=== PATIENT | female | born 1950 | race American Indian/Alaskan Native ===

== ENCOUNTER 2019-09-27 15:28 | Emergency (ER) | payer OTHER, SELFPAY ==
[2019-09-27 15:30] VITALS: BP 130/60; PULSE 72; RESP 14; TEMP 36.4; O2SAT 97; BMI 29.2
--- NOTE | 2019-09-27 15:51 | ED.NEUROSD ---
HPI - Neuro Symptoms/Deficit General Chief Complaint: Neuro Symptoms/Deficit Stated Complaint: Episode of tingling in face, dizziness Time Seen by Provider: 09/27/19 15:50 Source: patient Mode of arrival: Ambulatory Limitations: no limitations History of Present Illness HPI Narrative: 68-year-old woman with a history of radioactive thyroid ablation and chronic thyroid supplementation who had a episode this afternoon shortly after standing up abruptly where she experienced perioral tingling and a fleeting instance of dizziness. All symptoms resolved within seconds. She had no additional associated neurologic complaints. She does note that she has been having hot and cold flashes for a number of months but no fevers. She has no other complaints or concerns. When she contacted her primary care physician they recommended that she come to the emergency room for further evaluation. Related Data Home Medications Medication Instructions Recorded Confirmed fluticasone propionate #0 04/03/17 levothyroxine [Synthroid] #0 04/03/17 psyllium husk (aspartame) #0 04/03/17 [Metamucil Fiber Singles] Allergies Allergy/AdvReac Type Severity Reaction Status Date / Time No Known Drug Allergies Allergy Verified 09/27/19 15:39 Review of Systems Review of Systems Narrative: Pertinent positive and negative findings as per HPI Remainder of review of systems is otherwise unremarkable for Constitutional: Fevers, chills, weakness ENT: No sore throat, neck pain, ear pain CV: Chest pain, palpitations, dyspnea on exertion Respiratory: Cough, wheeze, dyspnea GI: Nausea, vomiting, diarrhea, change in bowel habits, black or bloody stools : Dysuria, hematuria, flank pain MS: Muscle weakness, numbness, joint swelling or warmth Skin: Rashes, nonhealing lesions Neuro: Syncope, dizziness, tingling Psych: Depression, anxiety, suicidal ideation Endocrine: Fatigue, heat or cold intolerance, very dry skin Heme: Easy bruising or bleeding Allergy: Seasonal rhinorrhea, itchy eyes Patient History Medical History (Updated 09/27/19 @ 16:15 by Brooklyn Moe MD) H/O radioactive iodine thyroid ablation (Acute) Hypothyroidism (acquired) (Acute) Surgical History (Updated 09/27/19 @ 16:15 by Brooklyn Moe MD) H/O hysterectomy for benign disease (Acute) Social History Smoking Status: Unknown if ever smoked Smoking Status: Unknown if ever smoked alcohol intake frequency: holidays/special occasions only Substance Use Type: does not use Exam Narrative Exam Narrative: General: Healthy appearing, in no acute distress. Able to give a complete and coherent history. Well-nourished well-developed HEENT: Moist mucous membranes, normal sclera with reactive pupils, Neck: No JVD, supple Respiratory: Lungs are clear to auscultation, no wheezing no rales no rhonchi. Full and symmetrical air movement Cardiac: Regular rate and rhythm no murmurs no bruits Abdomen: Soft nontender good bowel tones, no flank pain Skin: Warm and dry, no rashes Neurologic: Grossly neurologically intact with no obvious asymmetries or abnormalities. No gait unsteadiness, negative Babinski, symmetrical reflexes bilaterally 2+ Extremities: No trauma, well perfused Psych: Cooperative, appropriate insight and affect Initial Vital Signs Initial Vital Signs: Vital Signs Temperature 97.6 F 09/27/19 15:30 Pulse Rate 72 09/27/19 15:30 Respiratory Rate 14 09/27/19 15:30 Blood Pressure 130/60 09/27/19 15:30 Pulse Oximetry 97 09/27/19 15:30 Course Vital Signs Vital signs: Vital Signs - 8 hr 09/27/19 15:30 Temperature 97.6 F Pulse Rate 72 Respiratory Rate 14 Blood Pressure 130/60 Pulse Oximetry 97 Discharge Plan Departure Patient Disposition: Home Clinical Impression: Transient alteration of awareness Instructions: DI for Dizziness-Nonvertigo Activity Restrictions/Additional Instructions: Thank you for coming in today And very reassured with your description of events as well as your physical exam today. I do not have a full explanation for why you had that momentary episode of tingling around your lips and a sense that you were dizzy but I am reassured that it lasted less than a minute and that you are having no further symptoms. If you find your having more episodes like this, any symptoms that persist, fevers, chills, cough or feeling short of breath would be very appropriate to return to the emergency room for further evaluation I wish you the very best Prescriptions: No Action levothyroxine [Synthroid] 75 MCG tablet Qty: 0 RF: 0 fluticasone propionate 16 GM spray,suspension Qty: 0 RF: 0 psyllium husk (aspartame) [Metamucil Fiber Singles] 3.4 GM powder in packet Qty: 0 RF: 0 Referrals: Deborah Arce PA-C [Primary Care Provider] -
== END 2019-09-27 16:24 | disposition home or self-care (01) ==
PROVIDERS: Emergency Provider Emergency Medicine; Family Provider Physician Assistant; PCP Physician Assistant
DX: R40.4 Transient alteration of awareness (principal); R42 Dizziness and giddiness; R20.2 Paresthesia of skin
CPT/HCPCS: 99281

== ENCOUNTER → 2020-08-14 17:54 | Outpatient (CLI) | payer OTHER, SELFPAY ==
--- NOTE | 2020-08-14 | DI.RAD.S_ITS ---
PROCEDURE: XR CERVICAL SPINE 2V OR 3V INDICATIONS: Neck Pain TECHNIQUE: 3 view(s) of the cervical spine were acquired. COMPARISON: None. FINDINGS: Bones: No fractures or dislocations to the C7-T1 level. Decreased intervertebral disc space, degenerative endplate changes and bilateral uncinate hypertrophic changes are noted throughout cervical spine. The lateral masses of C1 appear intact on the odontoid view. No suspicious bony lesions. Soft tissues: No prevertebral soft tissue swelling. IMPRESSION: Degenerative disc disease throughout cervical spine. No acute fracture or dislocation. Dictated by: Freddy Mayer M.D. on 08/15/2020 at 13:18 Approved by: Freddy Mayer M.D. on 08/15/2020 at 13:20
== END ==
PROVIDERS: Family Provider Physician Assistant; PCP Physician Assistant; Referring Provider Family Medicine; Visit Provider Family Medicine
DX: M50.30 Other cervical disc degeneration, unspecified cervical region (principal)
CPT/HCPCS: 72040

== ENCOUNTER 2020-10-26 16:25 | Emergency (ER) | payer OTHER, SELFPAY ==
[2020-10-26 16:34] VITALS: PULSE 99; RESP 16; TEMP 36.1; O2SAT 100; BMI 22.3
--- NOTE | 2020-10-26 16:38 | DI.RAD.S_ITS ---
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 COMPARISON: [facility], , FINGER LT, 11/20/2012, 9:55. FINDINGS: Bones: No acute fracture identified. 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 1st MCP joint degeneration is present. Postsurgical changes and osseous fusion of the PIP joint of the index finger. Distal radioulnar joint osteoarthritis. Soft tissues: Little finger soft tissue swelling. IMPRESSION: No fracture. If the patient's symptoms do not improve recommend followup radiographs in 10 days to assess for healing sclerosis/occult injury. Soft tissue swelling of little finger. Dictated by: Ajay Long M.D. on 10/26/2020 at 17:03 Approved by: Ajay Long M.D. on 10/26/2020 at 17:06
[2020-10-26] MEDS: TET,DIPH,PERTUSS(ACELL),VAC/PF 0.5 ML SYRINGE IM (18:23)
[2020-10-26] MEDS: LIDO 1%/SOD BICARB 8.4% (10ML) 10 ML SYRINGE INJ (18:25)
--- NOTE | 2020-10-26 18:25 | PC.NURSE ---
Lidocaine administered by provider.
[2020-10-26 18:56] VITALS: BP 128/59; PULSE 64; RESP 16; O2SAT 98
--- NOTE | 2020-10-26 19:16 | ED.WOUNDLAC ---
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 She states she wrapped a lot of Band-Aids around it so it would stop bleeding. Does not know when her last tetanus is. States she has a full range of motion of her left 5th digit. Related Data Home Medications Medication Instructions Recorded Confirmed fluticasone propionate #0 04/03/17 levothyroxine [Synthroid] #0 04/03/17 psyllium husk (aspartame) #0 04/03/17 [Metamucil Fiber Singles] Allergies Allergy/AdvReac Type Severity Reaction Status Date / Time No Known Drug Allergies Allergy Verified 10/26/20 16:37 Review of Systems <JOHN Ferguson - Last Filed: 10/26/20 19:32> Review of Systems Narrative: GENERAL: Denies chills, fatigue, malaise, fever, sweats. HEENT: Denies sinus pain, ear pain, sore throat, difficulty swallowing, dizziness. RESPIRATORY: Denies dyspnea, cough, wheezing, hemoptysis, sputum. CARDIOVASCULAR: Denies chest pain, palpitations, orthopnea, edema, GASTROINTESTINAL: Denies nausea, vomiting, abdominal pain, diarrhea, constipation, melena. : Denies dysuria, frequency, incontinence, hematuria, urinary retention. MUSCULOSKELETAL: See HPI SKIN: See HPI NEUROLOGIC: Denies weakness, headache, numbness, change in speech, confusion, seizures, incoordination. PSYCHIATRIC: No concerning psychosocial issues. 12 point review of systems is negative except for those stated above Patient History <JOHN Ferguson - Last Filed: 10/26/20 19:32> Medical History (Updated 10/26/20 @ 19:09 by JOHN Ferguson) H/O radioactive iodine thyroid ablation Hypothyroidism (acquired) Surgical History (Updated 09/27/19 @ 16:15 by Brooklyn Moe MD) H/O hysterectomy for benign disease Social History Smoking Status: Unknown if ever smoked Smoking Status: Unknown if ever smoked alcohol intake frequency: holidays/special occasions only Substance Use Type: does not use Exam <JOHN Ferguson - Last Filed: 10/26/20 19:32> Narrative Exam Narrative: GENERAL: This is a well-nourished, well-developed patient, in no acute distress HEAD: Atraumatic. Normocephalic. No temporal or scalp tenderness. EYES: Pupils equal round and reactive. Extraocular motions intact. No scleral icterus. No injection or drainage. ENT: Nose without bleeding, purulent drainage or septal hematoma. Wearing a mask Airway patent. CARDIOVASCULAR: Regular rate and rhythm RESPIRATORY: No cough. No increased respiratory effort. No accessory muscle use. EXTREMITIES: 2 cm laceration along lateral aspect of distal and middle phalanx of left 5th digit. Laceration is well approximated, is a blood. Patient is able to fully flex and extend left 5th digit. Capillary refill less than 2 seconds left 5th digit. Positive left radial pulse BACK: Nontender without deformity or crepitance. No flank tenderness. NEURO: AOx3. SKIN: See extremity exam Initial Vital Signs Initial Vital Signs: Vital Signs Temperature 97 F L 10/26/20 16:34 Pulse Rate 99 H 10/26/20 16:34 Respiratory Rate 16 10/26/20 16:34 Pulse Oximetry 100 10/26/20 16:34 <Adonay Duran DO - Last Filed: 10/26/20 23:39> Initial Vital Signs Initial Vital Signs: Vital Signs Temperature 97 F L 10/26/20 16:34 Pulse Rate 99 H 10/26/20 16:34 Respiratory Rate 16 10/26/20 16:34 Pulse Oximetry 100 10/26/20 16:34 Procedures <JOHN Ferguson - Last Filed: 10/26/20 19:32> Laceration Repair Laceration 1: Site: hand Side (If applicable): left Size (cm): 2 Description: linear Depth: simple, single layer Pre-repair: wound explored and irrigated extensively Skin layer closed with: nylon Size (cm): 5-0 Number of sutures: 5 Technique: simple, interrupted Nerve Block Nerve Block 1: Local Anesthetic: lidocaine 1% and with bicarb Amount of anesthesia used (mL): 4 Side: left Nerve Blocks: digital Procedure Successful: Yes Patient Tolerated Procedure: Well Complications: none Scores <JOHN Ferguson - Last Filed: 10/26/20 19:32> GCS Mc coma scale eye opening: Spontaneous [place] coma scale verbal response: Orientated Mc coma scale motor response: Obey commands [place] coma scale total score: 15 Course <JOHN Ferguson - Last Filed: 10/26/20 19:32> Orders Ordered: ED Orders 10/26/20 16:38 XR finger LT min 2V Stat Discontinued Medications Diphtheria/Tetanus/Acell Pertussis (Tet,Diph,Pertuss(Acell),Vac/Pf 0.5 Ml Syringe) 0.5 ml IM .ONCE ONE Stop: 10/26/20 18:12 Last Admin: 10/26/20 18:23 Dose: 0.5 ml Documented by: VANNA Lidocaine/Sodium Bicarbonate (Lido 1%/Sod Bicarb 8.4% (10ml) 10 Ml Syringe) 10 ml INJ NOW ONE Stop: 10/26/20 18:12 Last Admin: 10/26/20 18:25 Dose: 10 ml Documented by: VANNA Vital Signs Vital signs: Vital Signs - 8 hr 10/26/20 16:34 10/26/20 18:56 Temperature 97 F L Pulse Rate 99 H 64 Respiratory Rate 16 16 Blood Pressure 128/59 L Pulse Oximetry 100 98 <Adonay Duran DO - Last Filed: 10/26/20 23:39> Orders Ordered: ED Orders 10/26/20 16:38 XR finger LT min 2V Stat Discontinued Medications Diphtheria/Tetanus/Acell Pertussis (Tet,Diph,Pertuss(Acell),Vac/Pf 0.5 Ml Syringe) 0.5 ml IM .ONCE ONE Stop: 10/26/20 18:12 Last Admin: 10/26/20 18:23 Dose: 0.5 ml Documented by: VANNA Lidocaine/Sodium Bicarbonate (Lido 1%/Sod Bicarb 8.4% (10ml) 10 Ml Syringe) 10 ml INJ NOW ONE Stop: 10/26/20 18:12 Last Admin: 10/26/20 18:25 Dose: 10 ml Documented by: VANNA Vital Signs Vital signs: Vital Signs - 8 hr 10/26/20 16:34 10/26/20 18:56 Temperature 97 F L Pulse Rate 99 H 64 Respiratory Rate 16 16 Blood Pressure 128/59 L Pulse Oximetry 100 98 [facility] - Wound/Laceration <Irina AddisonVALENTÍN- - Last Filed: 10/26/20 19:32> Imaging Data Extremity x-ray #1: Radiologist's Impression: [address] [id number] ReportSigned Patient: Sarah Villanueva FMR#: [id number]: 2Acct:[id number]/Sex: 70 / FDate of Service: 10/26/20Loc: EDAccession Number: [id number] Procedure: XR finger LT min 2V Ordering Provider: Yael Ro D.O. 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 COMPARISON: [facility], , FINGER LT, 11/20/2012, 9:55. FINDINGS: Bones: No acute fracture identified. 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 1st MCP joint degeneration is present. Postsurgical changes and osseous fusion of the PIP joint of the index finger. Distal radioulnar joint osteoarthritis. Soft tissues: Little finger soft tissue swelling. IMPRESSION: No fracture. If the patient's symptoms do not improve recommend followup radiographs in 10 days to assess for healing sclerosis/occult injury. Soft tissue swelling of little finger. Dictated by: Ajay Long M.D. on 10/26/2020 at 17:03 Approved by: Ajay Long M.D. on 10/26/2020 at 17:06 [facility] Narrative Medical decision making narrative: The patient is a 70-year-old female who presents with a chief complaint of laceration this morning sustained to her left 5th digit. Last tetanus status unknown, so she received in the emergency department. X-ray is no acute findings. She received a digital block and laceration repair as per procedural note which she tolerated well. I discussed at length keeping her hand clean and dry, follow-up with [employer] [facility] [employer] and monitoring for signs and symptoms of infection as well as suture removal in 1 week. Patient has no questions or concerns upon discharge and states understanding return precautions as well as follow-up care. Discharge Plan Departure Patient Disposition: Home Clinical Impression: Laceration Instructions: How to Care for a Laceration After Repair, DI for Laceration Repair, DI for Minor Laceration Activity Restrictions/Additional Instructions: Thank you for trusting us with your care today. I placed 5 sutures in your finger. Please follow-up with primary care provider regarding this as well as [employer]. Please keep your hand clean and dry. Do not submerge into dirty water to as this can increase her chance of infection. Please monitor for signs of infection such as extending redness or purulent drainage. Please come back to the emergency department. As I discussed, your x-ray shows no acute fracture. This does not rule out a soft tissue injury such as a ligament or tendon injury. It is important that you follow up with primary care provider, especially if worsening or no improvement. There can be fractures that did not show up on initial x-ray. Prescriptions: No Action levothyroxine [Synthroid] 75 MCG tablet Qty: 0 RF: 0 fluticasone propionate 16 GM spray,suspension Qty: 0 RF: 0 psyllium husk (aspartame) [Metamucil Fiber Singles] 3.4 GM powder in packet Qty: 0 RF: 0 Referrals: Deborah Arce PA-C [Primary Care Provider] - Stand Alone Forms: Work Release Note <Adonay Duran DO - Last Filed: 10/26/20 23:39> Cosign ED Attending Cosalonsoature Attestation: I was immediately available in the department for consultation. This documentation has been reviewed and I agree with assessment and plan. Supervised by Adonay Duran DO
== END 2020-10-26 19:15 | disposition home or self-care (01) ==
PROVIDERS: Emergency Provider Nurse Practitioner Family; Family Provider Physician Assistant; PCP Physician Assistant
DX: S61.211A Laceration without foreign body of left index finger without damage to nail, initial encounter (principal); W26.8XXA Contact with other sharp object(s), not elsewhere classified, initial encounter; Z23 Encounter for immunization
CPT/HCPCS: 12001; 64450; 73140; 90471; 99283; 99284; 90715

== ENCOUNTER → 2020-12-17 16:15 | Outpatient (CLI) | payer OTHER, SELFPAY ==
--- NOTE | 2020-12-17 16:20 | DI.RAD.S_ITS ---
PROCEDURE: XR LUMBAR SPINE 2-3V INDICATIONS: BACK PAIN TECHNIQUE: 3 views of the lumbar spine were acquired. COMPARISON: [facility], , L-SPINE 2-3 VIEWS, 10/04/2013, 14:32. FINDINGS: Bones: 5 [id number] vertebrae are present. There is mild levoscoliosis centered at L2 level. Degenerative endplate changes and decreased intervertebral disc space throughout lumbar spine is seen.. No vertebral body compression fractures. No suspicious bony lesions. Soft tissues: Overlying bowel gas pattern is normal. No suspicious soft tissue calcifications. IMPRESSION: Degenerative disc disease throughout lumbar spine and mild scoliosis as above. No acute compression fracture or spondylolisthesis. Dictated by: Freddy Mayer M.D. on 12/17/2020 at 17:23 Approved by: Freddy Mayer M.D. on 12/17/2020 at 17:24
== END ==
PROVIDERS: Family Provider Physician Assistant; PCP Physician Assistant; Referring Provider Family Medicine; Visit Provider Family Medicine
DX: M48.062 Spinal stenosis, lumbar region with neurogenic claudication (principal); M51.36 Other intervertebral disc degeneration, lumbar region; M41.86 Other forms of scoliosis, lumbar region
CPT/HCPCS: 72100

== ENCOUNTER → 2020-12-29 08:19 | Outpatient (CLI) | payer OTHER, SELFPAY ==
--- NOTE | 2020-12-29 | DI.MRI.S_ITS ---
PROCEDURE: MR LUMBAR SPINE WO CON INDICATIONS: LUMBAR STENOSIS TECHNIQUE: Noncontrast sagittal T1 spin echo and T2 fast echo, coronal T2, sagittal STIR, axial T1 and T2 fast spin echo through the lumbar spine. COMPARISON: [facility], CR, XR LUMBAR SPINE 2-3V, 12/17/2020, 16:15. [facility], MR, L-SPINE WITHOUT CONTRAST, 03/31/2014, 19:06. FINDINGS: Image quality: Excellent. Alignment and Curvature: 5 lumbar type vertebral bodies are present by plain film. Moderate leftward curvature of the mid/upper lumbar spine. Loss of normal lumbar lordosis. Mild grade 1 retrolisthesis of L1 on L2, L2 on L3, and L3 on L4. Bone Marrow: Marrow is of normal overall signal. No acute vertebral body compression fractures. There is mild reactive signal within the endplates adjacent to the L1-L2, L2-L3, L4-L5, and L5-S1 intervertebral discs. Spinal Cord: Conus medullaris terminates at the upper L2 level. Visualized cord demonstrates normal signal and size. Paraspinous Soft Tissues: No paravertebral masses. T12-L1: Mild disc desiccation and diffuse disc bulge. No significant canal, or foraminal stenosis. No significant change. L1-L2: Mild disc height loss and desiccation. Mild diffuse disc bulge. Mild facet and ligamentum flavum hypertrophy. Mild canal stenosis. No foraminal stenosis. No significant change. L2-L3: Moderate disc height loss and desiccation. Mild diffuse disc bulge. Mild facet and ligamentum flavum hypertrophy. Mild epidural lipomatosis. Mild canal stenosis. Mild bilateral foraminal stenosis. No significant change. L3-L4: Moderate disc height loss and desiccation. Mild diffuse disc bulge. Mild facet and ligamentum flavum hypertrophy. Mild epidural lipomatosis. Mild canal stenosis. Mild bilateral foraminal stenosis. No significant change. L4-L5: Mild disc height loss and desiccation. Mild diffuse disc bulge. Mild facet and ligamentum flavum hypertrophy. Mild epidural lipomatosis. Mild canal stenosis. Moderate left foraminal stenosis, increased from the prior examination. No change in mild right foraminal stenosis. L5-S1: Moderate disc height loss and desiccation. Mild diffuse disc bulge. Mild bilateral facet hypertrophy. Mild canal stenosis. Mild bilateral foraminal stenosis. No significant change. IMPRESSION: 1. Multilevel degenerative disc and facet disease, as well as ligamentum flavum hypertrophy and epidural lipomatosis. 2. Mild multilevel canal stenoses. 3. Multilevel foraminal stenoses, worst at L4-L5 on the left where there is moderate foraminal stenosis. Dictated by: Vijay Francisco M.D. on 12/31/2020 at 8:38 Approved by: Vijay Francisco M.D. on 12/31/2020 at 8:44
== END ==
PROVIDERS: Family Provider Physician Assistant; PCP Physician Assistant; Referring Provider Family Medicine; Visit Provider Family Medicine
DX: M48.061 Spinal stenosis, lumbar region without neurogenic claudication (principal); M48.07 Spinal stenosis, lumbosacral region; M51.36 Other intervertebral disc degeneration, lumbar region; M51.37 Other intervertebral disc degeneration, lumbosacral region; E88.2 Lipomatosis, not elsewhere classified
CPT/HCPCS: 72148

== ENCOUNTER → 2022-01-07 15:05 | Outpatient (CLI) | payer OTHER, SELFPAY ==
--- NOTE | 2022-01-07 | DI.RAD.S_ITS ---
PROCEDURE: XR HAND LT MIN 3V INDICATIONS: pain in left hand TECHNIQUE: 3 views of the hand(s) acquired. COMPARISON: [facility], HAND 3V LEFT, 01/21/2012, 14:21. [facility], HAND 3V RIGHT, 03/01/2008, 16:25. FINDINGS: Bones: No fractures or dislocations. Carpal bones are normally aligned. Prior 2nd digit PIP arthrodesis as before. Severe degenerative changes of the 1st CMC joint as before. Likely remote avulsion fractures of the 3rd digit distal phalanx and 1st digit distal phalanx similar appearance to before. Polyarticular degenerative changes present. New periarticular lucencies at the distal radius and lunate. Soft tissues: No suspicious soft tissue calcifications. IMPRESSION: 1. No acute fracture visualized. 2. Polyarticular degenerative changes, most pronounced at the 1st CMC joint. Scattered periarticular lucencies are also demonstrated, some of which are new, that could represent subchondral cysts but erosions are also possible. Dictated by: Vipin Magaña M.D. on 01/08/2022 at 9:45 Approved by: Vipin Magaña M.D. on 01/08/2022 at 9:54
== END ==
PROVIDERS: Family Provider Physician Assistant; PCP Physician Assistant; Referring Provider Physician Assistant; Visit Provider Physician Assistant
DX: M65.4 Radial styloid tenosynovitis [de Quervain] (principal); M79.642 Pain in left hand
CPT/HCPCS: 73130

== ENCOUNTER 2022-12-30 09:30 | Emergency (ER) | payer OTHER, SELFPAY ==
[2022-12-30 09:31] VITALS: BP 130/102; PULSE 86; RESP 16; TEMP 37.2; O2SAT 98; BMI 24.8
--- NOTE | 2022-12-30 10:56 | DI.RAD.S_ITS ---
PROCEDURE: XR CERVICAL SPINE 2V OR 3V INDICATIONS: neck pain TECHNIQUE: 3 view(s) of the cervical spine were acquired. COMPARISON: [facility], CR, XR CERVICAL SPINE 2V OR 3V, 08/14/2020, 17:58. FINDINGS: Bones: Vertebral body heights are well maintained. Moderate degenerative changes, with disc space height loss, arthropathy, and osteophytes. No traumatic subluxation. There is straightening of normal cervical lordosis. On odontoid view, C1 on C2 alignment is within normal limits. Soft tissues: No prevertebral soft tissue swelling. IMPRESSION: Moderate degenerative changes. No acute radiographic abnormality. If there is high concern for further derangement, consider MRI evaluation. Dictated by: Jacob Flaherty M.D. on 12/30/2022 at 11:51 Approved by: Jacob Flaherty M.D. on 12/30/2022 at 11:53
--- NOTE | 2022-12-30 10:58 | ED.NECK ---
HPI - Neck Pain/Injury General Chief Complaint: Neck Pain/Injury Stated Complaint: justa neck pain Time Seen by Provider: 12/30/22 10:42 Mode of arrival: Ambulatory History of Present Illness HPI Narrative: Patient here for ongoing neck pain for the past 2 days. Patient seen at her local [facility] yesterday. Was given Toradol shot and it did help for a little while. Patient has history of arthritis in her neck. X-ray was done many years ago she states that showed arthritis. Her neck has been doing well however recently she is had bronchitis and has been coughing a lot. She may have strained her neck and muscles. Hurts with any kind of movement. No numbness or tingling or weakness to the limbs or saddle paresthesia. No bowel or bladder incontinence or retention. No arm or leg numbness tingling or weakness. Daughter drove patient here Related Data Home Medications Medication Instructions Recorded Confirmed fluticasone propionate 50 ##0 04/03/17 mcg/actuation nasal spray,suspension levothyroxine 75 mcg tablet ##0 04/03/17 (Synthroid) psyllium husk (aspartame) 3.4 gram ##0 04/03/17 oral powder packet (Metamucil Fiber Singles) Previous Rx's Medication Instructions Recorded baclofen 20 mg tablet 20 mg PO TID PRN pain (scale score 12/30/22 4-6) #20 tabs ibuprofen 800 mg tablet 800 mg PO Q8H PRN pain #20 tabs 12/30/22 Allergies Allergy/AdvReac Type Severity Reaction Status Date / Time No Known Drug Allergies Allergy Verified 12/30/22 09:36 Review of Systems Review of Systems Narrative: GENERAL: negative chills, fatigue, malaise, fever, sweats. HEENT: negative sinus pain, ear pain, sore throat RESPIRATORY: negative dyspnea, cough CARDIOVASCULAR: negative chest pain, palpitations GASTROINTESTINAL: negative nausea, vomiting, abdominal pain : negative dysuria, frequency, hematuria MUSCULOSKELETAL: negative muscle or bony pain, positive neck pain SKIN: negative rash, skin lesions NEUROLOGIC: negative weakness, numbness ROS Unobtainable: All systems reviewed & are unremarkable except as noted in HPI and below Patient History Medical History H/O radioactive iodine thyroid ablation Hypothyroidism (acquired) Surgical History H/O hysterectomy for benign disease Social History Smoking Status: Unknown if ever smoked Smoking Status: Unknown if ever smoked alcohol intake frequency: holidays/special occasions only Substance Use Type: does not use Exam Narrative Exam Narrative: GENERAL: in no distress, not toxic not dyspneic HEAD: Normocephalic. EYES: Pupils equal round ENT: Mucous membranes moist. NECK: Trachea midline. There is very limited range of motion of the cervical spine with flexion-extension rotation left and right, there is bilateral paracervical muscle tenderness. Mild midline tenderness but no step-off. BACK: No flank tenderness. NEURO: AOx4. SKIN: Warm and dry PSYCH: Not anxious, is cooperative Initial Vital Signs Initial Vital Signs: Vital Signs Temperature 98.9 F 12/30/22 09:31 Pulse Rate 86 12/30/22 09:31 Respiratory Rate 16 12/30/22 09:31 Blood Pressure 130/102 H 12/30/22 09:31 Pulse Oximetry 98 12/30/22 09:31 Oxygen Delivery Method Room Air 12/30/22 09:31 Course Orders Ordered: Discontinued Medications Hydrocodone Bitart/Acetaminophen (Hydrocodone/Acet 5/325 Tablet) 1 tab PO NOW ONE Stop: 12/30/22 10:56 Last Admin: 12/30/22 11:34 Dose: 1 tab Documented By: PHIL Ketorolac Tromethamine (Ketorolac 30 Mg/Ml Vial) 30 mg IM NOW ONE Stop: 12/30/22 10:56 Last Admin: 12/30/22 11:35 Dose: 30 mg Documented By: PHIL Ondansetron HCl (Ondansetron 4 Mg Odt) 4 mg SL NOW ONE Stop: 12/30/22 10:56 Last Admin: 12/30/22 11:35 Dose: 4 mg Documented By: PHIL Vital Signs Vital signs: Vital Signs - 8 hr 12/30/22 09:31 12/30/22 11:59 Temperature 98.9 F Pulse Rate 86 75 Respiratory Rate 16 Blood Pressure 130/102 H 123/59 L Pulse Oximetry 98 98 Oxygen Delivery Method Room Air Room Air MDM - Neck Pain/Injury Imaging Data X-ray cervical spine: Radiologist's Impression: [address] [address] XRay Report Signed Patient: Sarah Villanueva MR#: [id number] : 1950 Acct:[id number] Age/Sex: 72 / F Date of Service: 12/30/22 Loc: ED Accession Number: [id number] ?? Procedure: XR cervical spine 2V or 3V Ordering Provider: Nagi Heredia MD PROCEDURE:? XR CERVICAL SPINE 2V OR 3V ? INDICATIONS:? neck pain ? TECHNIQUE:? 3 view(s) of the cervical spine were acquired.? ? COMPARISON:? [facility], CR, XR CERVICAL SPINE 2V OR 3V, 08/14/2020, 17:58. ? FINDINGS:? ? Bones:? Vertebral body heights are well maintained.? Moderate degenerative changes, with disc space height loss, arthropathy, and osteophytes.? No traumatic subluxation.? There is straightening of normal cervical lordosis.? On odontoid view, C1 on C2 alignment is within normal limits. ? Soft tissues:? No prevertebral soft tissue swelling. ? ? IMPRESSION:? Moderate degenerative changes.? No acute radiographic abnormality.? If there is high concern for further derangement, consider MRI evaluation. ? ? Dictated by: Jacob Flaherty M.D. on 12/30/2022 at 11:51 ? ? Approved by: Jacob Flaherty M.D. on 12/30/2022 at 11:53 ? [facility] Narrative Medical decision making narrative: Patient here for ongoing neck pain for the past 2 days. Patient seen at her local [facility] clinic yesterday. Was given Toradol shot and it did help for a little while. Patient has history of arthritis in her neck. X-ray was done many years ago she states that showed arthritis. Her neck has been doing well however recently she is had bronchitis and has been coughing a lot. She may have strained her neck and muscles. Hurts with any kind of movement. No numbness or tingling or weakness to the limbs or saddle paresthesia. No bowel or bladder incontinence or retention. No arm or leg numbness tingling or weakness. Daughter drove patient here After history and exam Dawson Zofran Toradol cervical x-ray [facility] CC: Neck pain Complicating co-morbidities: History of arthritis in the neck Data collected from: Patient Medical records reviewed: Clinic paper records brought by patient from yesterday Differential considered: Includes but not limited to arthritis degenerative disc disease torticollis Exam documented above, pertinent findings include: Very limited range of motion of the neck Lab Test results independently reviewed as above. Pertinent findings: None indicated Imaging studies independently reviewed: X-ray cervical spine moderate degeneration changes, no acute finding. Disc space height loss. Consultations: None indicated Treatments: Dawson Toradol Zofran Re-evaluations: 12:36 p.m.. Patient states pain is much better. Reviewed imaging and exam with patient. Her recent coughing spells has likely strained her neck and existing degenerative disc disease. Return precautions reviewed with her. Will need to follow up with primary care for physical therapy and outpatient MRI. She does have a class [employer]. Discussion: Appropriate for discharge home. Patient neurologically intact. No red flags. Patient pain is better and controlled. Return precautions reviewed. Patient does have family doctor to follow up with. Appropriate for outpatient MRI and physical therapy referral. She desires discharge home Diagnosis: Cervical strain Discharge Plan Departure Patient Disposition: Home Clinical Impression: Torticollis, Strain of neck muscle Instructions: DI for Cervical Muscle Strain, DI for Neck Pain Activity Restrictions/Additional Instructions: No driving or operating machinery today or when taking prescribed muscle relaxers for your neck pain. See family doctor within a week for re-evaluation. You may need MRI of the neck if it is not improving. You will need referral for physical therapy as well. Return if worse if any questions or concerns. Prescriptions: New ibuprofen 800 mg tablet 800 mg PO Q8H PRN (Reason: pain) Qty: 20 0RF baclofen 20 mg tablet 20 mg PO TID PRN (Reason: pain (scale score 4-6)) Qty: 20 0RF No Action levothyroxine [Synthroid] 75 MCG tablet Qty: 0 fluticasone propionate 16 GM spray,suspension Qty: 0 psyllium husk (aspartame) [Metamucil Fiber Singles] 3.4 GM powder in packet Qty: 0 Referrals: Deborah Arce PA-C [Primary Care Provider] - Stand Alone Forms: Patient Portal/API
[2022-12-30] MEDS: HYDROCODONE/ACET 5/325 TABLET 1 TAB PO (11:34)
[2022-12-30] MEDS: KETOROLAC 30 MG/ML VIAL IM (11:35)
[2022-12-30] MEDS: ONDANSETRON 4 MG ODT SL (11:35)
[2022-12-30 11:59] VITALS: BP 123/59; PULSE 75; O2SAT 98
== END 2022-12-30 13:54 | disposition home or self-care (01) ==
PROVIDERS: Emergency Provider Emergency Medicine; Family Provider Physician Assistant; PCP Physician Assistant
DX: M43.6 Torticollis (principal); S16.1XXA Strain of muscle, fascia and tendon at neck level, initial encounter
CPT/HCPCS: 72040; 96372; 99283; 99284; J1885

== ENCOUNTER 2022-12-31 10:24 | Emergency (ER) | payer OTHER, SELFPAY ==
[2022-12-31 10:33] VITALS: BP 121/60; PULSE 91; RESP 15; TEMP 36.2; O2SAT 97; BMI 22.6
--- NOTE | 2022-12-31 11:11 | DI.CT.S_ITS ---
PROCEDURE: CT HEAD/BRAIN WO CON INDICATIONS: intractable headache, acute onset TECHNIQUE: Noncontrast 4.5 mm thick angled axial sections acquired from the foramen magnum to the vertex, with coronal and sagittal reformats. For radiation dose reduction, the following was used: automated exposure control, adjustment of mA and/or kV according to patient size. COMPARISON: [facility], MR, STROKE PROTOCOL A, 11/01/2009, 11:04. [facility], CT, CT CERVICAL SPINE WO CON, 12/31/2022, 11:49. FINDINGS: Image quality: Mild streak artifact can be seen through the skull base. CSF spaces: Basal cisterns are patent. No extra-axial fluid collections. The ventricles are symmetric in size and shape. Brain: No intracranial bleeds or masses. There is cerebral volume loss for age, with resultant ventricular and sulcal prominence. There are periventricular and deep white matter chronic small vessel ischemic changes. There is intracranial internal carotid artery atherosclerosis. Skull and face: Calvarium and visualized facial bones appear intact, without suspicious lesions. Sinuses: Visualized sinuses and mastoids are clear. IMPRESSION: No acute intracranial hemorrhage is seen. No acute intracranial process is seen. Dictated by: Sumeet Patel M.D. on 12/31/2022 at 10:59 Approved by: Sumeet Patel M.D. on 12/31/2022 at 11:01
--- NOTE | 2022-12-31 11:16 | DI.CT.S_ITS ---
PROCEDURE: CT CERVICAL SPINE WO CON INDICATIONS: arthralgia vs other abnormality TECHNIQUE: Noncontrast 3 mm thick sections acquired from the skull base to the T4 level. Sagittal and coronal reformats were then constructed. For radiation dose reduction, the following was used: automated exposure control, adjustment of mA and/or kV according to patient size. COMPARISON: [facility], CR, XR CERVICAL SPINE 2V OR 3V, 08/14/2020, 17:58. [facility], CR, XR CERVICAL SPINE 2V OR 3V, 12/30/2022, 10:59. FINDINGS: Image quality: Excellent. Bones: No fractures or dislocations. Degenerative disc disease, moderate at C6-C7, and mild at C5-C6. Bilateral facet arthropathy, most pronounced and moderate at C3-C4, C4-C5 and C5-C6. There is moderate to severe atlantoaxial joint degeneration. Visualized superior ribs are intact. Soft tissues: Prevertebral soft tissues are normal in thickness. No paravertebral hematomas. No apical pneumothoraces. IMPRESSION: 1. No acute osseous abnormality. 2. Degenerative disc and facet disease. 3. Atlantoaxial arthrosis. Dictated by: Thu Peralta M.D. on 12/31/2022 at 11:54 Approved by: Thu Peralta M.D. on 12/31/2022 at 12:07
--- NOTE | 2022-12-31 11:16 | ED_ITS ---
HPI - Headache <Yeny Guerrero Maya [facility] - Last Filed: 12/31/22 13:54> General Chief Complaint: Headache Stated Complaint: Headache Time Seen by Provider: 12/31/22 11:05 Mode of arrival: Ambulatory History of Present Illness HPI Narrative: This is a 72-year-old female presents to the emergency department for her 3rd visit regarding an intractable headache and neck pain she is had for the last 2 days. She went to [facility] and was diagnosed with torticollis and neck strain, history of cervical arthritis, was treated with a muscle relaxer and a shot of Toradol. Instructed to follow-up. She was seen again on 12/30/2022 here in the emergency department for torticollis, neck strain, patient reports that her headache has only worsened. She states all movement is a trigger for her neck pain. patient has had a cough for 1 week, states that she was tested for COVID at the clinic And it was negative, has been on azithromycin for 1 week. She does not take a PPI. She presents to the emergency department with ongoing head pain with concern for a spontaneous intracranial hemorrhage. She is atraumatic. She states that she had a family member who had similar symptoms as her and was diagnosed with this prior to their . She is not anticoagulated. She reports that before the headache and neck pain started, she had frequent urinary incontinence And urgency. She states that this was new for her and she could barely get to the bathroom., She endorses some epigastric pain from her medications, denies stool changes, denies dysuria, urinary frequency, chills, nausea, vomiting, denies wheezing or difficulty breathing. she denies midline neck pain or radiation of this pain, she denies numbness or tingling in her hands. She has not had prior CT head/neck imaging. Related Data Home Medications Medication Instructions Recorded Confirmed fluticasone propionate 50 ##0 04/03/17 mcg/actuation nasal spray,suspension levothyroxine 75 mcg tablet ##0 04/03/17 (Synthroid) psyllium husk (aspartame) 3.4 gram ##0 04/03/17 oral powder packet (Metamucil Fiber Singles) Previous Rx's Medication Instructions Recorded baclofen 20 mg tablet 20 mg PO TID PRN pain (scale score 12/30/22 4-6) #20 tabs ibuprofen 800 mg tablet 800 mg PO Q8H PRN pain #20 tabs 12/30/22 cephalexin 500 mg capsule 500 mg PO QID 7 days #28 caps 12/31/22 hydrocodone 5 mg-acetaminophen 325 1 tab PO Q6H PRN pain #10 tabs 12/31/22 mg tablet lidocaine 5 % topical patch 1 patch topical DAILY PRN Neck 12/31/22 (Lidoderm) pain #30 ea omeprazole 20 mg tablet,delayed 20 mg PO DAILY #30 tabs 12/31/22 release Allergies Allergy/AdvReac Type Severity Reaction Status Date / Time No Known Drug Allergies Allergy Verified 12/31/22 10:33 Review of Systems <MARY ANNE Diallo - Last Filed: 12/31/22 13:54> Review of Systems ROS Unobtainable: All systems reviewed & are unremarkable except as noted in HPI and below Patient History <MARY ANNE Diallo - Last Filed: 12/31/22 13:54> Medical History H/O radioactive iodine thyroid ablation Hypothyroidism (acquired) Surgical History H/O hysterectomy for benign disease Social History Smoking Status: Unknown if ever smoked Smoking Status: Unknown if ever smoked alcohol intake frequency: holidays/special occasions only Substance Use Type: does not use Exam <MARY ANNE Diallo - Last Filed: 12/31/22 13:54> Narrative Exam Narrative: She has reproducible soft tissue paraspinal muscular pain with all neck movements. Is nontender along the cervical spine but has soft tissue tenderness bilaterally Negative Brudzinski's and Kernig sign General: Pleasant, sitting upright, in no acute distress, well groomed, afebrile, stiff upper body due to pain with mildly limited range of motion HEENT: symmetrical facial expressions, moist mucous membranes, neck is supple CV: regular rate and rhythm, warm extremities Respiratory: normal work of breathing, without tachypnea or hypoxia. GI: abdomen soft, nondistended, without CVA tenderness bilaterally. suprapubic tenderness to palpation MSK: moves all extremities, no weakness, normal tone, ambulatory without deficit Skin: brisk capillary refill, without rash or wound Neuro: clear speech and normal cognition, A&O x3, GCS 15, no focal motor or sensation deficits Initial Vital Signs Initial Vital Signs: Vital Signs Temperature 97.1 F L 12/31/22 10:33 Pulse Rate 91 H 12/31/22 10:33 Respiratory Rate 15 12/31/22 10:33 Blood Pressure 121/60 12/31/22 10:33 Pulse Oximetry 97 12/31/22 10:33 Oxygen Delivery Method Room Air 12/31/22 10:33 <Nagi Heredia MD - Last Filed: 01/06/23 12:05> Initial Vital Signs Initial Vital Signs: Vital Signs Temperature 97.1 F L 12/31/22 10:33 Pulse Rate 91 H 12/31/22 10:33 Respiratory Rate 15 12/31/22 10:33 Blood Pressure 121/60 12/31/22 10:33 Pulse Oximetry 97 12/31/22 10:33 Oxygen Delivery Method Room Air 12/31/22 10:33 Course <MARY ANNE Diallo - Last Filed: 12/31/22 13:54> Orders Ordered: Discontinued Medications Hydrocodone Bitart/Acetaminophen (Hydrocodone/Acet 5/325 Tablet) 1 tab PO NOW ONE Stop: 12/31/22 11:12 Last Admin: 12/31/22 11:42 Dose: 1 tab Documented By: CAPO Cephalexin HCl (Cephalexin 250 Mg Capsule) 500 mg PO NOW ONE Stop: 12/31/22 12:21 Last Admin: 12/31/22 12:27 Dose: 500 mg Documented By: MALATHI Diazepam (Diazepam 5 Mg Tablet) 5 mg PO NOW ONE Stop: 12/31/22 11:12 Last Admin: 12/31/22 11:47 Dose: 5 mg Documented By: CAPO Lidocaine (Lidocaine Patch 1 Each Adh..Patch) 1 each TOP NOW ONE Stop: 12/31/22 11:12 Last Admin: 12/31/22 11:42 Dose: 1 each Documented By: CAPO Pantoprazole Sodium (Pantoprazole Dr 20 Mg Tablet) 20 mg PO NOW ONE Stop: 12/31/22 11:21 Last Admin: 12/31/22 11:42 Dose: 20 mg Documented By: CAPO Prednisone (Prednisone 20 Mg Tablet) 40 mg PO NOW ONE Stop: 12/31/22 11:21 Last Admin: 12/31/22 11:43 Dose: 40 mg Documented By: CAPO Vital Signs Vital signs: Vital Signs - 8 hr 12/31/22 10:33 12/31/22 12:23 Temperature 97.1 F L Pulse Rate 91 H 78 Respiratory Rate 15 16 Blood Pressure 121/60 131/68 Pulse Oximetry 97 98 Oxygen Delivery Method Room Air Room Air <Nagi Heredia MD - Last Filed: 01/06/23 12:05> Orders Ordered: Discontinued Medications Hydrocodone Bitart/Acetaminophen (Hydrocodone/Acet 5/325 Tablet) 1 tab PO NOW ONE Stop: 12/31/22 11:12 Last Admin: 12/31/22 11:42 Dose: 1 tab Documented By: CAPO Cephalexin HCl (Cephalexin 250 Mg Capsule) 500 mg PO NOW ONE Stop: 12/31/22 12:21 Last Admin: 12/31/22 12:27 Dose: 500 mg Documented By: MALATHI Diazepam (Diazepam 5 Mg Tablet) 5 mg PO NOW ONE Stop: 12/31/22 11:12 Last Admin: 12/31/22 11:47 Dose: 5 mg Documented By: CAPO Lidocaine (Lidocaine Patch 1 Each Adh..Patch) 1 each TOP NOW ONE Stop: 12/31/22 11:12 Last Admin: 12/31/22 11:42 Dose: 1 each Documented By: CAPO Pantoprazole Sodium (Pantoprazole Dr 20 Mg Tablet) 20 mg PO NOW ONE Stop: 12/31/22 11:21 Last Admin: 12/31/22 11:42 Dose: 20 mg Documented By: ACPO Prednisone (Prednisone 20 Mg Tablet) 40 mg PO NOW ONE Stop: 12/31/22 11:21 Last Admin: 12/31/22 11:43 Dose: 40 mg Documented By: CAPO Vital Signs Vital signs: Vital Signs - 8 hr 12/31/22 10:33 12/31/22 12:23 Temperature 97.1 F L Pulse Rate 91 H 78 Respiratory Rate 15 16 Blood Pressure 121/60 131/68 Pulse Oximetry 97 98 Oxygen Delivery Method Room Air Room Air MDM - Headache <MARY ANNE Diallo - Last Filed: 12/31/22 13:54> Lab Data Labs: Lab Results 12/31/22 Range/Units 12:10 Urine Color Yellow Urine Appearance Clear Urine pH 6.0 (4.5-8.0) Ur Specific [place] 1.015 (1.000-1.035) Urine Protein Negative (Negative) Urine Glucose (UA) Negative (Negative) g/dL Urine Ketones 1+ H (NEGATIVE) Urine Occult Blood 2+ H (Negative) Urine Nitrate Negative (Negative) Urine Bilirubin Negative (NEGATIVE) Urine Urobilinogen 0.2 (0.2) E.U./dL Ur Leukocyte Esterase Negative (NEGATIVE) Urine RBC 5-10/hpf H (0-5/HPF) Urine WBC None seen (0-5/HPF) Ur Squamous Epith Cells 0-1 /hpf (0-5/HPF) Urine Bacteria None seen (None) Ur Culture Indicated? Cult not indicated Imaging Data CT scan - head: Radiologist's Impression: PROCEDURE:? CT HEAD/BRAIN WO CON ? INDICATIONS:? intractable headache, acute onset ? TECHNIQUE:? Noncontrast 4.5 mm thick angled axial sections acquired from the foramen magnum to the vertex, with coronal and sagittal reformats.? For radiation dose reduction, the following was used:? automated exposure control, adjustment of mA and/or kV according to patient size.? ? COMPARISON:? [facility], MR, STROKE PROTOCOL A, 11/01/2009, 11:04.? [facility], CT, CT CERVICAL SPINE WO CON, 12/31/2022, 11:49. ? FINDINGS:? Image quality:? Mild streak artifact can be seen through the skull base. ? CSF spaces:? Basal cisterns are patent.? No extra-axial fluid collections.? The ventricles are symmetric in size and shape.? ? Brain:? No intracranial bleeds or masses.? There is cerebral volume loss for age, with resultant ventricular and sulcal prominence.? There are periventricular and deep white matter chronic small vessel ischemic changes.? There is intracranial internal carotid artery atherosclerosis.? ? Skull and face:? Calvarium and visualized facial bones appear intact, without suspicious lesions.? ? Sinuses:? Visualized sinuses and mastoids are clear.? ? ? IMPRESSION:? No acute intracranial hemorrhage is seen.? ? No acute intracranial process is seen.? ? ? Dictated by: Sumeet Patel M.D. on 12/31/2022 at 10:59 ? ? Approved by: Sumeet Patel M.D. on 12/31/2022 at 11:01 ? CT - cervical spine: Radiologist's Impression: PROCEDURE:? CT CERVICAL SPINE WO CON ? INDICATIONS:? arthralgia vs other abnormality ? TECHNIQUE:? Noncontrast 3 mm thick sections acquired from the skull base to the T4 level.? Sagittal and coronal reformats were then constructed.? For radiation dose reduction, the following was used:? automated exposure control, adjustment of mA and/or kV according to patient size.? ? COMPARISON:? [facility], CR, XR CERVICAL SPINE 2V OR 3V, 08/14/2020, 17:58.? [facility], CR, XR CERVICAL SPINE 2V OR 3V, 12/30/2022, 10:59. ? FINDINGS:? Image quality:? Excellent.? ? Bones:? No fractures or dislocations.? Degenerative disc disease, moderate at C6-C7, and mild at C5-C6.? Bilateral facet arthropathy, most pronounced and moderate at C3- C4, C4-C5 and C5-C6.? There is moderate to severe atlantoaxial joint degeneration.? Visualized superior ribs are intact.? ? Soft tissues:? Prevertebral soft tissues are normal in thickness.? No paravertebral hematomas.? No apical pneumothoraces.? ? ? IMPRESSION:? ? 1. No acute osseous abnormality.? 2. Degenerative disc and facet disease.? 3. Atlantoaxial arthrosis. ? ? ? Dictated by: Thu Peralta M.D. on 12/31/2022 at 11:54 ? ? Approved by: Thu Peralta M.D. on 12/31/2022 at 12:07 ? MDM Narrative Medical decision making narrative: Chief Complaint: Ongoing neck and head pain, urinary changes Multiple etiologies for patient's complaint considered including, but not limited to: cervical radiculopathy, arthralgia, urinary tract infection, nephrolithiasis, pyelonephritis, osteoarthritis, degenerative disk disease I have independently reviewed the patient's vital signs and nursing notes as well as prior records if available. I reviewed the paperwork from the prior visits both from the emergency department and the splint was clinic. Patient had incontinence and urinary urgency prior to her neck pain and headache. She had a urine dip completed by myself today showing ketones, 3+ blood, she had suprapubic tenderness to palpation, is tolerating p.o. without nausea vomiting, fever chills. Urine culture is pending. She has reproducible soft tissue tenderness to palpation of the paraspinal musculature in her neck. CT of her cervical spine shows degenerative disc and facet disease, axial atlantoaxial arthrosis and no acute changes. She was treated with a lidocaine patch, Valium 5 mg, prednisone, and hydrocodone. She had marked improvement of her symptoms. States the lidocaine patch was very helpful. She is encouraged to follow-up with orthopedics for further care, was given a short course of prednisone, she did not have radicular symptoms, full strength to all 4 extremities, ambulatory without weakness or reflex deficit. Patient no longer has incontinence and denies dysuria, we discussed that symptoms of a UTI are sometimes not noticeable except for episodes of urinary urgency. She does not have flank tenderness bilaterally. Encourage patient to follow-up with primary care for a test of cure and to fol low-up with physical therapy if indicated. Patient will do this, and was given strict return precautions for worsening of her symptoms, fever, chills, weakness, new incontinence or brynn hematuria. Social considerations that may affect disposition: none Questions are addressed and there is agreement with the plan and for follow-up*. I consulted with the ED attending physician Dr. Heredia as needed for higher level of care considerations and they were available for discussion and recommendations regarding plan of care and diagnostic testing. Patient is appropriate for outpatient management. <Nagi Heredia MD - Last Filed: 01/06/23 12:05> Lab Data Labs: Lab Results 12/31/22 Range/Units 12:10 Urine Color Yellow Urine Appearance Clear Urine pH 6.0 (4.5-8.0) Ur Specific [place] 1.015 (1.000-1.035) Urine Protein Negative (Negative) Urine Glucose (UA) Negative (Negative) g/dL Urine Ketones 1+ H (NEGATIVE) Urine Occult Blood 2+ H (Negative) Urine Nitrate Negative (Negative) Urine Bilirubin Negative (NEGATIVE) Urine Urobilinogen 0.2 (0.2) E.U./dL Ur Leukocyte Esterase Negative (NEGATIVE) Urine RBC 5-10/hpf H (0-5/HPF) Urine WBC None seen (0-5/HPF) Ur Squamous Epith Cells 0-1 /hpf (0-5/HPF) Urine Bacteria None seen (None) Ur Culture Indicated? Cult not indicated Discharge Plan Departure Patient Disposition: Home Clinical Impression: DDD (degenerative disc disease), cervical Urinary tract infection Qualifiers: Urinary tract infection type: acute cystitis Hematuria presence: with hematuria Qualified Code(s): N30.01 - Acute cystitis with hematuria Instructions: Degenerative Disc Disease, DI for Urinary Tract Infection (UTI), DI for Chronic Neck Pain Activity Restrictions/Additional Instructions: *You have been diagnosed with A urinary tract infection, this is likely related only to the bladder, a neck strain secondary to the degenerative changes in your spine. CT of your head did not show any abnormalities, the CT of your spine showed degenerative disc and facet disease, atlantoaxial arthrosis. Please follow-up at the [facility] regarding your neck pain. I have given you a course of steroids today, please avoid taking ibuprofen or anti-inflammatories. Please take prednisone with food and water and omeprazole to protect your stomach. You may use your baclofen as needed for muscle pain, or the Flexeril, either arm acceptable but not both. Use a lidocaine patch every 12 hours and change it. Please try alternating with heat and ice if helpful, try topical diclofenac gel or lidocaine patches , these are both available [id number]. Follow up with primary care for referral to physical therapy and for outpatient therapies as needed. Return to the emergency department immediately if you have new incontinence or difficulty urinating, inability to control your bowels, groin numbness, new weakness or the inability to walk, fever, or worsening symptoms. I recommend physical therapy and follow-up for any needed treatments. *What to do: *Please continue to take your regular medications as directed. [ x] New medication prescriptions sent to your pharmacy: [[facility] ] [ ] New medication written as a paper prescription [ ] No new medications given *Please call and schedule follow up with your primary care provider in 2-3 days, at least for an update. Let them know you were seen in the Emergency Department for the above problem. We will electronically transmit a record of today's note if your PCP or specialist is in our system. *If you do not have a primary care provider please contact [phone] to establish care with one of the [facility] primary care providers. *Return to the Emergency Department for worsening symptoms, inability to keep liquids down, fever greater than 101F, chills, or other concerning symptom. Prescriptions: New lidocaine [Lidoderm] 5 % adhesive patch,medicated 1 patch topical DAILY PRN (Reason: Neck pain) Qty: 30 0RF Rx Instructions: leave on most painful area for up to 12 hrs hydrocodone-acetaminophen 5-325 mg tablet 1 tab PO Q6H PRN (Reason: pain) Qty: 10 0RF omeprazole 20 mg tablet,delayed release (DR/EC) 20 mg PO DAILY Qty: 30 0RF cephalexin 500 mg capsule 500 mg PO QID 7 Days Qty: 28 0RF No Action levothyroxine [Synthroid] 75 MCG tablet Qty: 0 fluticasone propionate 16 GM spray,suspension Qty: 0 psyllium husk (aspartame) [Metamucil Fiber Singles] 3.4 GM powder in packet Qty: 0 ibuprofen 800 mg tablet 800 mg PO Q8H PRN (Reason: pain) Qty: 20 0RF baclofen 20 mg tablet 20 mg PO TID PRN (Reason: pain (scale score 4-6)) Qty: 20 0RF Referrals: [facility] [Provider Group] Deborah Arce PA-C [Primary Care Provider] - Stand Alone Forms: Patient Portal/API <Nagi Heredia MD - Last Filed: 01/06/23 12:05> [facility] I was immediately available in the department for consultation. ?This documentation has been reviewed and I agree with assessment and plan. Supervised by Nagi Heredia MD
[2022-12-31] MEDS: LIDOCAINE PATCH 1 EACH ADH..PATCH TOP (11:42)
[2022-12-31] MEDS: HYDROCODONE/ACET 5/325 TABLET 1 TAB PO (11:42)
[2022-12-31] MEDS: PANTOPRAZOLE DR 20 MG TABLET PO (11:42)
[2022-12-31] MEDS: predniSONE 20 MG TABLET 40 MG PO (11:43)
[2022-12-31] MEDS: diazePAM 5 MG TABLET PO (11:47)
[2022-12-31 12:23] VITALS: BP 131/68; PULSE 78; RESP 16; O2SAT 98
[2022-12-31] MEDS: cephALEXin 250 MG CAPSULE 500 MG PO (12:27)
[2022-12-31 12:30] LABS: Appearance Urine UA CLEAR; Bilirubin Urine UA NEGATIVE (NEGATIVE); Color Urine UA YELLOW; Glucose Urine UA NEGATIVE (Negative); Ketones Urine UA 1+ (NEGATIVE); Leukocyte Esterase Urine UA NEGATIVE (NEGATIVE); Nitrite Urine UA NEGATIVE (Negative); Occult Blood Urine UA 2+ (Negative); Protein Urine UA NEGATIVE (Negative); Specific Gravity Urine UA 1.015 (1.000-1.035); Urobilinogen Urine UA 0.2 E.U./dL (0.2)
[2022-12-31 12:38] LABS: Bacteria Urine None Seen; Culture Indicated Urine Cult Not Indicated; RBC Urine 5-10/HPF (0-5/HPF); Squamous Epithelial Cell Urine 0-1 /HPF (0-5/HPF); WBC Urine None Seen (0-5/HPF)
== END 2022-12-31 12:44 | disposition home or self-care (01) ==
PROVIDERS: Emergency Provider Nurse Practitioner Critical Care Medicine; Family Provider Physician Assistant; PCP Physician Assistant
DX: M50.323 Other cervical disc degeneration at C6-C7 level (principal); N30.01 Acute cystitis with hematuria
CPT/HCPCS: 70450; 72125; 81001; 87086; 99283; 99284

== ENCOUNTER 2023-07-18 09:52 | Emergency (ER) | payer OTHER, SELFPAY ==
[2023-07-18 10:23] VITALS: BP 121/60; PULSE 91; RESP 16; TEMP 36.7; O2SAT 98; BMI 25.1
== END 2023-07-18 11:15 | disposition left against medical advice (07) ==
PROVIDERS: Emergency Provider Emergency Medicine; Family Provider Physician Assistant; PCP Physician Assistant
CPT/HCPCS: 99281

== ENCOUNTER 2024-01-14 17:21 | Emergency (ER) | payer OTHER, SELFPAY ==
[2024-01-14] VITALS (11 sets, daily range): BP systolic 125–163; BP diastolic 63–99; PULSE 58–72; RESP 12–19; TEMP 36.6; O2SAT 94–100; BMI 25.9
--- NOTE | 2024-01-14 17:35 | EKG_ITS ---
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
[2024-01-14 18:01] LABS: Add Manual Diff / Slide Review NO; Basophils Absolute Auto 0 /uL (0-100); Basophils Percent Auto 0.7 % (0-2); Eosinophils Absolute Auto 100 /uL (0-450); Eosinophils Percent Auto 1.6 % (2-4); Hematocrit 36.7 % (36-46); Hemoglobin 12.4 g/dL (12.0-16.0); Lymphocytes Absolute Auto 2500 /uL (1100-4500); Lymphocytes Percent Auto 48.5 % (25-40); Mean Corpuscular HGB Conc 33.7 % (30-36); Mean Corpuscular Volume 91.9 fL (80-100); Monocytes Absolute Auto 400 /uL (0-900); Monocytes Percent Auto 7.7 % (3-14); Neutrophils Absolute Auto 2100 /uL (1500-7000); Neutrophils Percent Auto 41.5 % (50-75); Platelet Count 335 X10^3/uL (150-400); Red Blood Cell Count 3.99 X10^6/uL (4.0-5.2); Red Cell Distribution Width 14.4 % (11.6-14.8); White Blood Cell Count 5.2 X10^3/uL (4.5-11.0)
[2024-01-14 18:02] LABS: Appearance Urine UA CLEAR; Bilirubin Urine UA NEGATIVE (NEGATIVE); Color Urine UA YELLOW; Glucose Urine UA NEGATIVE (Negative); Ketones Urine UA NEGATIVE (NEGATIVE); Leukocyte Esterase Urine UA NEGATIVE (NEGATIVE); Nitrite Urine UA NEGATIVE (Negative); Occult Blood Urine UA 1+ (Negative); Protein Urine UA NEGATIVE (Negative); Urobilinogen Urine UA 0.2 E.U./dL (0.2)
[2024-01-14 18:08] LABS: RBC Urine 1-5/HPF (0-5/HPF); Urine Volume 10mL (spun); WBC Urine None Seen (0-5/HPF)
[2024-01-14 18:09] LABS: Bacteria Urine None Seen; Culture Indicated Urine Cult Not Indicated; Squamous Epithelial Cell Urine None Seen (0-5/HPF)
[2024-01-14 18:16] LABS: Alanine Aminotransferase 24 IU/L (<35); Albumin 4.2 g/dL (3.5-5.0); Albumin Globulin Ratio 1.4 (1.0-2.8); Alkaline Phosphatase 84 U/L (38-126); Aspartate Aminotransferase 37 IU/L (14-36); BUN Creatinine Ratio 16.4 (6-22); Bilirubin Total 0.5 mg/dL (0.2-1.3); Blood Urea Nitrogen 18 mg/dL (7-17); Calcium 9.4 mg/dL (8.4-10.2); Carbon Dioxide 25 mmol/L (22-32); Chloride 109 mmol/L (98-107); Estimated Glomerular Filt Rate 53 mL/min (>60); Glucose 89 mg/dL (80-110); HEMOLYSIS < 15 (0-50); Lipase 80 U/L (23-300); Sodium 139 mmol/L (137-145); Total Protein 7.2 g/dL (6.3-8.2)
--- NOTE | 2024-01-14 18:45 | ED_ITS ---
HPI - Abdominal Pain General Chief Complaint: Abdominal Pain Stated Complaint: WIC; Abd Pain, Check Appendix Time Seen by Provider: 01/14/24 18:07 Source: patient Mode of arrival: Ambulatory History of Present Illness HPI narrative: 73-year-old female with right lower quadrant abdominal discomfort since 10:00 a.m. this morning, no injury or trauma or new activities, believes that she still has her appendix. She believes that she had her tubes in her ovaries and her uterus taken out years ago. She has her gallbladder. She does not recall previous urine infections, does not have pain with urination, no frequency of urination. Last bowel movement loose morning did not seem to improve her symptoms. No black or red stools, no mucoid schools. She has not recently been on exposed to any antibiotics. She does not recall previous problems with colitis, diverticulitis, chronic bowel disorders. Related Data Home Medications Medication Instructions Recorded Confirmed fluticasone propionate 50 ##0 04/03/17 mcg/actuation nasal spray,suspension levothyroxine 75 mcg tablet ##0 04/03/17 (Synthroid) psyllium husk (aspartame) 3.4 gram ##0 04/03/17 oral powder packet (Metamucil Fiber Singles) Previous Rx's Medication Instructions Recorded baclofen 20 mg tablet 20 mg PO TID PRN pain (scale score 12/30/22 4-6) #20 tabs ibuprofen 800 mg tablet 800 mg PO Q8H PRN pain #20 tabs 12/30/22 hydrocodone 5 mg-acetaminophen 325 1 tab PO Q6H PRN pain #10 tabs 12/31/22 mg tablet lidocaine 5 % topical patch 1 patch topical DAILY PRN Neck 12/31/22 (Lidoderm) pain #30 ea omeprazole 20 mg tablet,delayed 20 mg PO DAILY #30 tabs 12/31/22 release Allergies Allergy/AdvReac Type Severity Reaction Status Date / Time No Known Drug Allergies Allergy Verified 12/31/22 10:33 Review of Systems Review of Systems Narrative: see HPI Patient History Medical History H/O radioactive iodine thyroid ablation Hypothyroidism (acquired) Surgical History H/O hysterectomy for benign disease Social History Smoking Status: Unknown if ever smoked Smoking Status: Unknown if ever smoked alcohol intake frequency: holidays/special occasions only Substance Use Type: does not use Exam Narrative Exam Narrative: GENERAL: Well-developed patient, in mild distress. HEAD: Atraumatic. Normocephalic. EYES: Pupils equal round and reactive. Extraocular motions intact. No scleral icterus. No injection or drainage. ENT: Nose without bleeding, purulent drainage. Throat without erythema, tonsillar hypertrophy or exudate. Airway patent. NECK: Trachea midline. Non tender CARDIOVASCULAR: Regular rate and rhythm without murmurs, gallops, or rubs. RESPIRATORY: Clear to auscultation. Breath sounds equal bilaterally. No wheezes, rales, or rhonchi. GASTROINTESTINAL: Abdomen soft, non-tender, nondistended. Well-healed low midline abdominal scar that patient attributes to her previous remote surgery removal tubes ovaries uterus. No obvious incisional or other ventral hernias EXTREMITIES: No edema or joint tenderness. BACK: Nontender without deformity or crepitance. No flank tenderness. NEURO: AOx3. Nonfocal gross motor exam SKIN: No rash or erythema of visible areas Initial Vital Signs Initial Vital Signs: Vital Signs Temperature 97.9 F 01/14/24 17:30 Pulse Rate 72 01/14/24 17:30 Respiratory Rate 18 01/14/24 17:30 Blood Pressure 163/65 H 01/14/24 17:30 Pulse Oximetry 100 01/14/24 17:30 Oxygen Delivery Method Room Air 01/14/24 17:30 Course Orders Ordered: ED Orders 01/14/24 18:51 CT abdomen pelvis w con Stat Discontinued Medications Hydromorphone HCl (Hydromorphone 0.5 Mg Inj) 0.5 mg IV NOW ONE Stop: 01/14/24 18:52 Last Admin: 01/14/24 19:02 Dose: 0.5 mg Documented By: KI Sodium Chloride (Normal Saline 0.9%) 1,000 mls @ 500 mls/hr IV BOLUS ONE Stop: 01/14/24 20:53 Last Infusion: 01/14/24 20:54 Dose: Infused Documented By: Admin: 01/14/24 19:02 Dose: 500 mls/hr Documented By: KI Ondansetron HCl (Ondansetron 4 Mg/2 Ml Inj) 4 mg IV NOW PRN PRN Reason: Nausea And Vomiting Ondansetron HCl (Ondansetron 4 Mg Odt) 4 mg PO NOW PRN PRN Reason: Nausea And Vomiting Ondansetron HCl (Ondansetron 4 Mg/2 Ml Inj) 4 mg IV NOW ONE Stop: 01/14/24 18:52 Last Admin: 01/14/24 19:02 Dose: 4 mg Documented By: KI Vital Signs Vital signs: Vital Signs - 8 hr 01/14/24 20:00 01/14/24 20:00 01/14/24 20:36 Pulse Rate 67 62 Respiratory Rate 15 18 Blood Pressure 146/67 H Pulse Oximetry 96 96 01/14/24 21:00 01/14/24 21:30 01/14/24 22:00 Pulse Rate 62 64 58 L Respiratory Rate 14 16 17 Blood Pressure Pulse Oximetry 95 96 96 01/14/24 22:24 Pulse Rate Respiratory Rate Blood Pressure 125/69 Pulse Oximetry MDM - Abdominal Pain Lab Data Attestation: I reviewed the patient's lab results. 01/14/24 17:41 01/14/24 17:41 Labs: Lab Results 01/14/24 01/14/24 Range/Units 17:40 17:41 WBC 5.2 (4.5-11.0) X10^3/uL RBC 3.99 L (4.0-5.2) X10^6/uL Hgb 12.4 (12.0-16.0) g/dL Hct 36.7 (36-46) % MCV 91.9 (80-100) fL MCH 31.0 (26-34) PG MCHC 33.7 (30-36) % RDW 14.4 (11.6-14.8) % Plt Count 335 (150-400) X10^3/uL Neut % (Auto) 41.5 L (50-75) % Lymph % (Auto) 48.5 H (25-40) % Smith % (Auto) 7.7 (3-14) % Eos % (Auto) 1.6 L (2-4) % Baso % (Auto) 0.7 (0-2) % Neut # (Auto) 2100 (5129-4993) /uL Lymph # (Auto) 2500 (2106-1422) /uL Smith # (Auto) 400 (0-900) /uL Eos # (Auto) 100 (0-450) /uL Baso # (Auto) 0 (0-100) /uL Sodium 139 (137-145) mmol/L Potassium 4.0 (3.4-5.1) mmol/L Chloride 109 H (98-107) mmol/L Carbon Dioxide 25 (22-32) mmol/L BUN 18 H (7-17) mg/dL Creatinine 1.10 H (0.52-1.04) mg/dL Estimated GFR 53 L (>60) mL/min BUN/Creatinine Ratio 16.4 (6-22) Glucose 89 (80-110) mg/dL Calcium 9.4 (8.4-10.2) mg/dL Total Bilirubin 0.5 (0.2-1.3) mg/dL AST 37 H (14-36) IU/L ALT 24 (<35) IU/L Alkaline Phosphatase 84 (38-126) U/L Total Protein 7.2 (6.3-8.2) g/dL Albumin 4.2 (3.5-5.0) g/dL Globulin 3.0 (1.7-4.1) g/dL Albumin/Globulin Ratio 1.4 (1.0-2.8) Lipase 80 (23-300) U/L Urine Color Yellow Urine Appearance Clear Urine pH 7.0 (4.5-8.0) Ur Specific [place] 1.010 (1.000-1.035) Urine Protein Negative (Negative) Urine Glucose (UA) Negative (Negative) g/dL Urine Ketones Negative (NEGATIVE) Urine Occult Blood 1+ H (Negative) Urine Nitrate Negative (Negative) Urine Bilirubin Negative (NEGATIVE) Urine Urobilinogen 0.2 (0.2) E.U./dL Ur Leukocyte Esterase Negative (NEGATIVE) Urine RBC 1-5/hpf (0-5/HPF) Urine WBC None seen (0-5/HPF) Ur Squamous Epith Cells None seen (0-5/HPF) Urine Bacteria None seen (None) Ur Culture Indicated? Cult not indicated Vol Urine Centrifuged 10ml (spun) Imaging Data CT scan - abdomen/pelvis: Radiologist's Impression: [address] [address] [address] Scan Report Signed Patient: Sarah Villanueva MR#: [id number] : 1950 Acct:[id number] Age/Sex: 73 / F Date of Service: 01/14/24 Loc: ED Accession Number: [id number] Procedure: CT abdomen pelvis w con Ordering Provider: Errol Liang MD PROCEDURE: CT ABDOMEN PELVIS W CON INDICATIONS: abdominal pain TECHNIQUE: After the administration of intravenous contrast, axial sections acquired from the lung bases to the pubic symphysis. Coronal and sagittal reformats were performed. For radiation dose reduction, the following was used: automated exposure control, adjustment of mA and/or kV according to patient size. COMPARISON: None. FINDINGS: Image quality: Diagnostic. Lower Chest: Bibasilar atelectasis. ABDOMEN: Liver: No solid mass. Hepatic cysts. Gallbladder: No radiopaque gallstones or wall thickening. Biliary ducts: No biliary dilation. Pancreas: No ductal dilation. Spleen: Size is within normal limits. Adrenal Glands: No adrenal nodules. Kidneys and Ureters: No hydronephrosis. No solid mass. No complex renal cystic lesion which requires follow up. Stomach and Bowel: Normal colonic caliber, without significant wall thickening. Duodenal diverticulum. Diverticulosis. Peritoneum: No abnormal intraperitoneal fluid. No free air. Ventral Wall: No significant ventral hernia. Abdominal Nodes: No retroperitoneal or mesenteric adenopathy by size criteria. Vessels: Aorta and inferior vena cava are normal in size. PELVIS: Pelvic Organs: The uterus is absent. No free fluid. Bladder: No stone. Pelvic Nodes: No enlarged lymph nodes. Miscellaneous: No inguinal hernias are seen. Bones: No aggressive osseous abnormality. Scoliosis. DDD most pronounced at L2-L3. IMPRESSION: No acute abnormality identified. No free fluid. Dictated by: Kana Forrest M.D. on 01/14/2024 at 21:19 Approved by: Kana Forrest M.D. on 01/14/2024 at 21:27 ECG Data Attestation: I personally reviewed and interpreted this ECG as follows: Interpretation: Normal sinus rhythm with rate of 63, no obvious ST segment elevation or depression changes. AK 148, QRS 78, QTC 403. MDM Narrative Medical decision making narrative: 73-year-old [place] female with right lower quadrant pain through the day today, still has her appendix, remote hysterectomy and oophorectomy reported, loose stools earlier today. DX consider appendicitis, colitis, diverticulitis, enteritis, constipation, mesenteric adenitis, UTI, ureteral stone, hernia, bowel obstruction, other. Labs pending. She would like something for pain. IV Dilaudid/Zofran. Creatinine normal. CT abdomen and pelvis with IV contrast ordered. CT abdomen and pelvis showed no acute changes, see radiology report. Patient informed. Consider trial of laxative. Consider lower endoscopy screening, discussed with PCP. Advised patient follow up with PCP in the next 1-2 days. Return precautions discussed. Discharge Plan Departure Patient Disposition: Home Clinical Impression: Abdominal pain Activity Restrictions/Additional Instructions: Lower abdominal pain of unclear cause. Laboratory studies unremarkable. CT scanning of the abdomen and the of the pelvis showed no acute changes, per radiologist report. You could have some degree of constipation, although this was not mentioned by the radiologist, consider [id number] oral laxative medication such as MiraLax. If symptoms persist consider lower endoscopy evaluation. Recheck symptoms with your regular doctor in the next day or 2. Return to this/nearest emergency department for any change worsening symptoms or any concerns prior Prescriptions: No Action levothyroxine [Synthroid] 75 MCG tablet Qty: 0 fluticasone propionate 16 GM spray,suspension Qty: 0 psyllium husk (aspartame) [Metamucil Fiber Singles] 3.4 GM powder in packet Qty: 0 lidocaine [Lidoderm] 5 % adhesive patch,medicated 1 patch topical DAILY PRN (Reason: Neck pain) Qty: 30 0RF Rx Instructions: leave on most painful area for up to 12 hrs hydrocodone-acetaminophen 5-325 mg tablet 1 tab PO Q6H PRN (Reason: pain) Qty: 10 0RF omeprazole 20 mg tablet,delayed release (DR/EC) 20 mg PO DAILY Qty: 30 0RF ibuprofen 800 mg tablet 800 mg PO Q8H PRN (Reason: pain) Qty: 20 0RF baclofen 20 mg tablet 20 mg PO TID PRN (Reason: pain (scale score 4-6)) Qty: 20 0RF Referrals: Deborah Arce PA-C [Primary Care Provider] - Stand Alone Forms: Patient Portal/API
--- NOTE | 2024-01-14 18:51 | DI.CT.S_ITS ---
PROCEDURE: CT ABDOMEN PELVIS W CON INDICATIONS: abdominal pain TECHNIQUE: After the administration of intravenous contrast, axial sections acquired from the lung bases to the pubic symphysis. Coronal and sagittal reformats were performed. For radiation dose reduction, the following was used: automated exposure control, adjustment of mA and/or kV according to patient size. COMPARISON: None. FINDINGS: Image quality: Diagnostic. Lower Chest: Bibasilar atelectasis. ABDOMEN: Liver: No solid mass. Hepatic cysts. Gallbladder: No radiopaque gallstones or wall thickening. Biliary ducts: No biliary dilation. Pancreas: No ductal dilation. Spleen: Size is within normal limits. Adrenal Glands: No adrenal nodules. Kidneys and Ureters: No hydronephrosis. No solid mass. No complex renal cystic lesion which requires follow up. Stomach and Bowel: Normal colonic caliber, without significant wall thickening. Duodenal diverticulum. Diverticulosis. Peritoneum: No abnormal intraperitoneal fluid. No free air. Ventral Wall: No significant ventral hernia. Abdominal Nodes: No retroperitoneal or mesenteric adenopathy by size criteria. Vessels: Aorta and inferior vena cava are normal in size. PELVIS: Pelvic Organs: The uterus is absent. No free fluid. Bladder: No stone. Pelvic Nodes: No enlarged lymph nodes. Miscellaneous: No inguinal hernias are seen. Bones: No aggressive osseous abnormality. Scoliosis. DDD most pronounced at L2-L3. IMPRESSION: No acute abnormality identified. No free fluid. Dictated by: Kana Forrest M.D. on 01/14/2024 at 21:19 Approved by: Kana Forrest M.D. on 01/14/2024 at 21:27
[2024-01-14] MEDS: HYDROMORPHONE 0.5 MG INJ IV (19:02)
[2024-01-14] MEDS: SODIUM CHLORIDE 0.9% 1,000 ML 500 ML IV (19:02)
[2024-01-14] MEDS: ONDANSETRON 4 MG/2 ML INJ IV (19:02)
== END 2024-01-14 22:27 | disposition home or self-care (01) ==
PROVIDERS: Emergency Medicine; Emergency Provider Emergency Medicine; Family Provider Physician Assistant; PCP Physician Assistant
DX: R10.31 Right lower quadrant pain (principal); Z90.710 Acquired absence of both cervix and uterus
CPT/HCPCS: 36415; 74177; 80053; 81001; 83690; 85025; 93005; 93010; 96361; 96374; 96375; 99284; J1170; J2405; Q9967

== ENCOUNTER → 2024-02-01 16:11 | Outpatient (CLI) | payer OTHER, SELFPAY ==
--- NOTE | 2024-02-01 16:13 | DI.RAD.S_ITS ---
PROCEDURE: XR HAND RT MIN 3V INDICATIONS: HAND PAIN TECHNIQUE: Three views of the hand acquired. COMPARISON: [facility], CR, XR HAND LT MIN 3V, 01/07/2022, 15:38. FINDINGS: Bones: No acute fractures or dislocations. Carpal bones are normally aligned. No suspicious bony lesions. Severe degenerative changes are seen in the 1st carpometacarpal joint with subchondral sclerosis, subchondral cystic changes, marginal osteophytes, and remodeling of the articular surfaces. Additional scattered degenerative changes are seen most notably at the 1st metacarpophalangeal joint, triscaphe joint, and radiocarpal articulations. Mild scattered degenerative changes throughout the interphalangeal joints of the fingers. Small ununited ossification is seen adjacent to the ulnar styloid tip. Soft tissues: Chondrocalcinosis is noted in the region of the triangular fibrocartilage. IMPRESSION: 1. Severe 1st carpometacarpal osteoarthrosis. Additional moderate degenerative changes in the remainder of the hand and wrist. 2. Chondrocalcinosis. Differential diagnosis includes but is not limited to hemochromatosis, hyperparathyroidism and CPPD. Approved by: Vipin Reyes M.D. on 02/02/2024 at 8:34
== END ==
LOC: RAD 16:12
PROVIDERS: Family Provider Physician Assistant; PCP Physician Assistant; Referring Provider Physician Assistant; Visit Provider Physician Assistant
DX: M18.11 Unilateral primary osteoarthritis of first carpometacarpal joint, right hand (principal); M11.241 Other chondrocalcinosis, right hand; M79.641 Pain in right hand
CPT/HCPCS: 73130

== ENCOUNTER → 2024-05-21 12:51 | Outpatient (CLI) | payer OTHER, SELFPAY ==
--- NOTE | 2024-05-21 12:53 | DI.CT.S_ITS ---
PROCEDURE: CT IVP A/P W/WO INDICATIONS: ASYMPTOMATIC MICROSCOPIC HEMATURIA TECHNIQUE: Optional 5 mm thick noncontrast images acquired from the diaphragm to the symphysis pubis. After the administration of intravenous contrast, 5 mm thick images acquired from the diaphragm to the symphysis pubis after a 10-minute delay. 2 mm thick coronal and sagittal reformats were then performed of the kidneys and ureters. For radiation dose reduction, the following was used: automated exposure control, adjustment of mA and/or kV according to patient size. COMPARISON: [facility], CT, CT ABDOMEN PELVIS W CON, 01/14/2024, 20:20. FINDINGS: Image quality: Diagnostic. Kidneys and Ureters: Both kidneys are normal in size, without hydronephrosis or nephrolithiasis. No perinephric fat stranding. There is normal bilateral renal enhancement. Renal calyces appear normal in morphology when filled with contrast. Opacified portions of both ureters demonstrate normal caliber Bladder: Bladder wall thickness is normal. No calcified bladder stones. OTHER: Lower chest: Unremarkable. Liver: No solid mass. Redemonstration of multiple hepatic cysts. Gallbladder: Gallbladder is mildly distended but without wall thickening or radiodense stones. Biliary ducts: No biliary dilation. Pancreas: No ductal dilation. No peripancreatic inflammation. Spleen: Size is within normal limits. Adrenal Glands: No adrenal nodules. Stomach and Bowel: Normal colonic caliber, without significant wall thickening. Prominent duodenal diverticulum as before. Scattered colonic diverticula without acute inflammation. No evidence for small bowel obstruction or associated inflammatory changes. Normal appendix. Peritoneum: No abnormal intraperitoneal fluid. No free air. Ventral Wall: No hernia. Abdominal Nodes: No retroperitoneal or mesenteric adenopathy by size criteria. Vessels: Aorta and inferior vena cava are normal in size. PELVIS: Pelvic Organs: Unremarkable. Pelvic Nodes: No enlarged lymph nodes. Miscellaneous: No inguinal hernias are seen. Bones: No aggressive osseous abnormality. Visualized osseous structures appear intact without acute fracture or focal destructive lesion. No acute compression fractures of the imaged spine. Multilevel spondylosis. IMPRESSION: No nephrolithiasis or filling defects within the opacified renal collecting system or ureters. CT abdomen and pelvis without acute abnormalities. No findings to explain patient's microscopic hematuria. Colonic diverticulosis without acute diverticulitis. Other chronic findings as above. Dictated by: Kilo Lopez M.D. on 05/21/2024 at 18:30 Approved by: Kilo Lopez M.D. on 05/21/2024 at 18:37
[2024-05-21 13:15] LABS: Estimated Glomerular Filt Rate > 60 mL/min (>60)
== END ==
PROVIDERS: Radiology Diagnostic Radiology; Family Provider Physician Assistant; PCP Physician Assistant; Referring Provider Family Medicine; Visit Provider Family Medicine
DX: R31.21 Asymptomatic microscopic hematuria (principal); K76.89 Other specified diseases of liver; K57.90 Diverticulosis of intestine, part unspecified, without perforation or abscess without bleeding
CPT/HCPCS: 36415; 74178; 82565; Q9967